=== PATIENT | female | born 2000 | race African-American/Black ===

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

== ENCOUNTER 2019-02-03 14:38 | Emergency (ER) | payer MEDICAID, OTHER ==
[~2019-02-03] VITALS: Ht 165.1 cm; Wt 153.6 kg
[2019-02-03] MEDS ORDERED: IBUP-1022 PO (15:59)
[2019-02-03 16:05] VITALS: BP 143/84
--- NOTE | 2019-02-03 17:04 | REP ---
HISTORY: Pain after trauma. COMPARISON: None. FINDINGS: Three views of the shoulder were performed. The acromioclavicular and glenohumeral relationships are within normal limits. There is no acute fracture or destructive osseous lesion. Electronically Signed by Duran Whitman DO 02/09/2019 02:37 P
== END 2019-02-03 16:08 | disposition home or self-care (01) ==
LOC: M ED 14:38
DX: S46.912A Strain of unspecified muscle, fascia and tendon at shoulder and upper arm level, left arm, initial encounter (principal); Y92.009 Unspecified place in unspecified non-institutional (private) residence as the place of occurrence of the external cause; Y93.9 Activity, unspecified; Y99.9 Unspecified external cause status; F12.90 Cannabis use, unspecified, uncomplicated